=== PATIENT | female | born 1985 | race Caucasian/White ===

== ENCOUNTER 2017-02-06 15:53 | Inpatient (IN) | payer OTHER ==
[2017-02-06 17:41] VITALS: BMI 27.9
--- NOTE | 2017-02-06 19:14 | HP ---
COWS - Scale Resting Pulse: 0= SD 80 or Below Sweatin=Flushed/Facial Moisture Restless Observation: 3= Extraneous Movement Pupil Size: 2= Moderately Dilated Bone or Joint Aches: 2= Severe Diffuse Aches Runny Nose/ Eye Tearin= Runny Nose/Eyes GI Upset > 30mins: 3= Vomiting/Diarrhea Tremor Observation: 2= Slight Tremor Visible Yawning Observation: 2= >3x During Session Anxiety or Irritability: 2=Irritable/Anxious Goose Flesh Skin: 0=Smooth Skin COWS Score: 20 Admission ROS S - HPI Chief Complaint: NIC HERE TO BE DETOX FROM DILAUDID,REFER BY PMD Allergies/Adverse Reactions: Allergies Allergy/AdvReac Type Severity Reaction Status Date / Time No Known Allergies Allergy Verified 02/06/17 18:49 History of Present Illness: THIS 31 YEARS OLD FEMALE WITH OPITE DEPENDENCE,SEEKING DETOX,REFER FOR PMD,[facility] CLOSED 2 MOTHS AGO ENDOMETRIOSIS HEPATITIS C TREATED FACTOR 12 DEFICIENCY ANXIETY AND DEPRESSION,INSOMNIA NEVER BEEN IN DETOX BEFORE Exam Limitations: No Limitations - Ebola screening Have you traveled outside of the country in the last 21 days: No Have you had contact with anyone from an Ebola affected area: No Have you been sick,other than usual withdrawal symptoms: No Do you have a fever: No - Review of Systems Constitutional: Chills, Diaphoresis, Loss of Appetite, Malaise, Night Sweats, Changes in sleep, Weakness EENT: reports: Tearing, Nose Congestion Respiratory: reports: No Symptoms reported Cardiac: reports: Palpitations GI: reports: Diarrhea, Nausea, Vomiting, Abdominal cramping : reports: No Symptoms Reported Musculoskeletal: reports: Back Pain, Joint Pain, Muscle Pain Integumentary: reports: Dryness Neuro: reports: Headache, Tremors Endocrine: reports: No Symptoms Reported Hematology: reports: No Symptoms Reported Psychiatric: reports: No Sypmtoms Reported (INSOMNIA), Judgement Intact, Mood/ Affect Appropiate, Anxious, Depressed Patient History - Patient Medical History Hx Anemia: No Hx Asthma: No Hx Chronic Obstructive Pulmonary Disease (COPD): No Hx Cancer: No Hx Cardiac Disorders: No Hx Congestive Heart Failure: No Hx Hypertension: No Hx Hypercholesterolemia: No Hx Seizures: No Hx Dementia: No Hx Diabetes: No Hx Gastrointestinal Disorders: No Hx Liver Disease: Yes (HEPATITIS C TREATED) Hx Genitourinary Disorders: No Hx Sexually Transmitted Disorders: No Hx Renal Disease (ESRD): No Hx Thyroid Disease: No Hx Human Immunodeficiency Virus (HIV): No (LAST 2011 NEGATIVE) Hx Hepatitis C: Yes (TREATED) Hx Depression: Yes (ANXIETY) Hx Suicide Attempt: Yes (CUTTER AT AGE OF 18) Hx Bipolar Disorder: No Hx Schizophrenia: No Other Medical History: NO SUICIDAL,NO HOMICIDAL - Patient Surgical History Past Surgical History: Yes Hx Neurologic Surgery: No Hx Cataract Extraction: No Hx Cardiac Surgery: No Hx Lung Surgery: No Hx Breast Surgery: No Hx Breast Biopsy: No Hx Abdominal Surgery: Yes (LAP REMOVAL OF ENDOMETRIOSIS 2014,2015) Hx Appendectomy: No Hx Cholecystectomy: No Hx Genitourinary Surgery: No Hx Section: No Hx Orthopedic Surgery: No Other Surgical History: CYST OF RIGHT OVARY BENIGN AT AGE OF 22 Anesthesia Reaction: No - PPD History Previous Implant?: Yes Documented Results: Negative w/o proof Implanted On Prior [facility] Admission?: No PPD to be Administered?: Yes - Reproductive History Patient is a Female of Child Bearing Age (11 -55 yrs old): Yes Last Menstrual Period: 01/23/17 Patient : No - Smoking Cessation Smoking history: Never smoked Have you smoked in the past 12 months: No Hx Chewing Tobacco Use: No Initiated information on smoking cessation: No - Substance & Tx. History Hx Alcohol Use: No Hx Substance Use: Yes Substance Use Type: Opiates Hx Substance Use Treatment: No - Substances Abused Dilaudid Route: Oral Frequency: Daily Amount used: 20mg Age of first use: 25 Date of Last Use: 02/06/17 Family Disease History - Family Disease History Family History: Denies Admission Physical Exam S - Vital Signs Vital Signs: Vital Signs - 24 hr 02/06/17 17:36 Temperature 99.4 F Pulse Rate 76 Respiratory 18 Rate Blood Pressure 136/72 - Physical General Appearance: Yes: Moderate Distress, Tremorous, Irritable, Sweating, Anxious HEENTM: Yes: Hearing grossly Normal, Normal ENT Inspection, Normocephalic, JOSE , Pharynx Normal Respiratory: Yes: Lungs Clear, Normal Breath Sounds, No Respiratory Distress Neck: Yes: Within Normal Limits, Supple, Trachea in good position Breast: Yes: Breast Exam Deferred Cardiology: Yes: Within Normal Limits, Regular Rhythm, Regular Rate, S1, S2 Abdominal: Yes: Within Normal Limits, Normal Bowel Sounds, Non Tender, Soft Genitourinary: Yes: Within Normal Limits Back: Yes: Normal Inspection, Muscle Spasm Extremities: Yes: Normal Range of Motion, Tremors Neurological: Yes: ferruler II-XII NML intact, Fully Oriented, Alert, Motor Strength 5/5 Integumentary: Yes: Dry Lymphatic: Yes: Within Normal Limits - Diagnostic (1) Opioid dependence with withdrawal Current Visit: Yes Status: Acute (2) Endometriosis Current Visit: Yes Status: Acute (3) Hepatitis C Current Visit: Yes Status: Acute (4) Anxiety and depression Current Visit: Yes Status: Acute (5) Insomnia Current Visit: Yes Status: Acute (6) Endometriosis determined by laparoscopy Current Visit: Yes Status: Acute Cleared for Admission [facility] - Detox or Rehab [facility] Level of Care: Medically Managed Detox Regimen/Protocol: Methadone [facility] Breath Alcohol Content Breath Alcohol Content: 0 Urine Pregancy Test - Result Urine Test Results: Negative- NO Line Present Urine Drug Screen - Results Drug Screen Negative: No Urine Drug Screen Results: TCA-Tricyclic Antidepress, OXY-Oxycodone
[2017-02-06] MEDS ORDERED: guaiFENesin/D-METHORPHAN HB 10 ML UNIT-DOSE CUPS PO PRN (19:35)
[2017-02-06] MEDS ORDERED: MAGNESIUM HYDROX 2400MG/30ML ORAL SUSPENSION 30 ML CUP PO PRN (19:35)
[2017-02-06] MEDS ORDERED: MENTHOL/PHENOL 1 EACH UD MM PRN (19:35)
[2017-02-06] MEDS ORDERED: MAGNESIUM CITRATE 300 ML BOTTLE PO PRN (19:35)
[2017-02-06] MEDS ORDERED: METHADONE HCL 10 MG TABLET (FOR DETOX USE ONLY) PO ONE ×2 (19:35→23:00)
[2017-02-06] MEDS: diazePAM 5 MG TABLET PO PRN (22:25)
[2017-02-06] MEDS: CYCLOBENZAPRINE HCL 10 MG TABLET (FP) PO PRN (22:26)
[2017-02-06] MEDS: THIAMINE HCL 100 MG TABLET (FP) PO SCH (22:26)
[2017-02-06] MEDS: cloNIDine HCL 0.1 MG TABLET PO SCH (22:26)
[2017-02-06] MEDS: diphenhydrAMINE HCL 50 MG CAPSULE PO PRN (22:27)
[2017-02-07] MEDS: MAG HYDROX/AL HYDROX/SIMETH 30 ML UNIT-DOSE CUP PO PRN ×2 (00:30→22:34)
[2017-02-07] MEDS ORDERED: METHADONE HCL 10 MG TABLET (FOR DETOX USE ONLY) PO ONE (10:00)
[2017-02-07] MEDS: cloNIDine HCL 0.1 MG TABLET PO SCH ×2 (10:47→22:32)
[2017-02-07] MEDS: PRENATAL VITAMINS W/ FOLIC ACID TABLET (FP) PO SCH (10:47)
[2017-02-07] MEDS: CYCLOBENZAPRINE HCL 10 MG TABLET (FP) PO PRN ×2 (10:50→22:32)
--- NOTE | 2017-02-07 11:35 | PN ---
BHS COWS - Scale Resting Pulse: 1= [place] 81-100 Sweatin=Flushed/Facial Moisture Restless Observation: 1= Difficult to Sit Still Pupil Size: 0= Normal to Room Light Bone or Joint Aches: 2= Severe Diffuse Aches Runny Nose/ Eye Tearin= Runny Nose/Eyes GI Upset > 30mins: 2= Nausea/Diarrhea Tremor Observation of Outstretched Hands: 2= Slight Tremor Visible Yawning Observation: 2= >3x During Session Anxiety or Irritability: 2=Irritable/Anxious Goose Flesh Skin: 0=Smooth Skin COWS Score: 16 BHS Progress Note (SOAP) Subjective: agitation sweats irritable anxious i need my control Objective: 02/07/17 11:29 Vital Signs Temperature 98.8F 02/07/17 10:00 Pulse Rate 100 02/07/17 10:00 Respiratory Rate 16 02/07/17 10:00 Blood Pressure 127/72 02/07/17 010:00 O2 Sat by Pulse Oximetry (%) labs pending awake/alert ambulating no acute distress discuss with pt that she will need a family member bring in her control medication because we do not carry it. Also advised her that if the first option is not feasible she is to start a new pack once she is finished with detox. pt in agreement. Assessment: 02/07/17 11:35 withdrawal sx Plan: continue detox increase fluids
[2017-02-07] MEDS: GABAPENTIN 400 MG CAPSULE (FP) PO SCH ×2 (13:57→22:32)
--- NOTE | 2017-02-07 14:06 | EKG ---
Test Reason : Blood Pressure : / mmHG Vent. Rate : 089 BPM Atrial Rate : 089 BPM P-R Int : 166 ms QRS Dur : 084 ms QT Int : 348 ms P-R-T Axes : 072 070 061 degrees QTc Int : 423 ms NORMAL SINUS RHYTHM NORMAL ECG NO PREVIOUS ECGS AVAILABLE Confirmed by CARMELLA MENDOZA MD ([id number]) on 02/07/2017 2:05:57 PM Referred By: Jose Rafael Roche Confirmed By:CARMELLA MENDOZA MD
--- NOTE | 2017-02-07 14:45 | CONSULT ---
[facility] Psychiatric Consult - Data Date of interview: 02/07/17 Admission source: [facility] Identifying data: First admission to [facility] for this 31 y/o female seeking detox treatment on for opiate dependence.Patient is single without children,domiciled,unemployed and supported on [facility] benefits. Substance Abuse History: Discussed in detail with the patient in this interview.Ms Johansen confirms this [facility] report : Smoking Cessation. Smoking history: Never smoked. Have you smoked in the past 12 months: No. Hx Chewing Tobacco Use: No. Initiated information on smoking cessation: No. - Substance & Tx. History. Hx Alcohol Use: No. Hx Substance Use: Yes. Substance Use Type : Opiates. Hx Substance Use Treatment: No. - Substances Abused. Dilaudid. Route: Oral. Frequency: Daily. Amount used: 20mg. Age of first use: 25. Date of Last Use: 02/06/17 Medical History: Remarkable for GERD,factor XII deficiency,hepatitis C and a history of surgery for endometriosis (2014 + 2015).Remote history of surgical excision of cyst in right ovary (age 22).No known allergies. Psychiatric History: No reported history of psychiatric hospitalizations.However the patient was reportedly diagnosed with MDD and followed " for a while " by a private psychiatrist five years ago.Ms Johansen was prescribed sertraline and,as per self-report,the treatment was effective in symptom reduction.Patient indicates the occurrence of dysphoric symptoms " more often in recent times " and she wishes to resume zoloft.No history of suicide attempts.Moderate insomnia is endorsed by the patient (welcomes the addition of zolpidem to the regimen). Physical/Sexual Abuse/Trauma History: Patient denies. Additional Comment: Urine Drug Screen Results: TCA-Tricyclic Antidepressant, OXY -Oxycodone.Noted. Mental Status Exam - Mental Status Exam Alert and Oriented to: Time, Place, Person Cognitive Function: Good Patient Appearance: Well Groomed Mood: Anxious (mildly), Hopeful Affect: Appropriate, Normal Range Patient Behavior: Fatigued, Appropriate (well mannered), Cooperative Speech Pattern: Clear, Appropriate (good historian) Voice Loudness: Normal Thought Process: Intact, Goal Oriented Thought Disorder: Not Present Hallucinations: Denies Suicidal Ideation: Denies Homicidal Ideation: Denies Insight/Judgement: Fair Sleep: Poorly, Difficulty falling asleep Appetite: Good Muscle strength/Tone: Normal Gait/Station: Normal Psychiatric Findings - Problem List ([place] 1, 2,3) (1) Opioid dependence with withdrawal Current Visit: Yes Status: Acute (2) Mood disorder Current Visit: Yes Status: Chronic (3) Endometriosis Current Visit: Yes Status: Chronic (4) Hepatitis C Current Visit: Yes Status: Chronic (5) Insomnia Current Visit: Yes Status: Acute - Initial Treatment Plan Initial Treatment Plan: Psychoeducation well received by patient.Detoxification in progress.Zoloft 50 mg po daily + ambien 5 mg po hs prn.Side effects/benefits discussed with the patient.Made aware of potential for suicidal ideation/ decreased libido (sertraline) and parasomnias (ambien).Ms Johansen is in agreement with this plan of care.Observation.
[2017-02-07] MEDS: TRIMETHOBENZAMIDE HCL 300 MG CAPSULE PO PRN (15:33)
[2017-02-07] MEDS: diazePAM 5 MG TABLET PO PRN ×2 (15:39→22:32)
[2017-02-07] MEDS: ZOLPIDEM TARTRATE 5 MG TABLET PO PRN (22:32)
[2017-02-07] MEDS: THIAMINE HCL 100 MG TABLET (FP) PO SCH (22:33)
[2017-02-08] MEDS: GABAPENTIN 400 MG CAPSULE (FP) PO SCH ×3 (05:29→22:22)
[2017-02-08] MEDS: CYCLOBENZAPRINE HCL 10 MG TABLET (FP) PO PRN ×2 (05:32→22:21)
[2017-02-08] MEDS: diazePAM 5 MG TABLET PO PRN ×3 (05:32→22:22)
[2017-02-08] MEDS: TRIMETHOBENZAMIDE HCL 300 MG CAPSULE PO PRN (08:30)
[2017-02-08] MEDS ORDERED: METHADONE HCL 5 MG TABLET (FOR DETOX USE ONLY) PO ONE (10:00)
[2017-02-08] MEDS ORDERED: LEVONOR ETH ESTRAD PO ONE (10:00)
[2017-02-08] MEDS ORDERED: LEVONORGESTREL ETHIN ESTRADIOL PO SCH (10:00)
[2017-02-08 10:04] LABS: ALBUMIN 3.6 g/dl (3.4-5.0); ANION GAP 4 (8-16); CO2 29 mmol/L (21-32); GLUCOSE,RANDOM 83 mg/dL (74-106)
[2017-02-08 10:09] LABS: ALK PHOS 68 U/L (45-117); BILIRUBIN,TOTAL 0.4 mg/dL (0.2-1.0); CREATININE 0.8 mg/dL (0.55-1.02); SGOT/AST 12 U/L (15-37); SGPT/ALT 15 U/L (12-78); TOT PROT 6.9 g/dl (6.4-8.2)
[2017-02-08 10:13] LABS: MCH 28.7 pg (25.7-33.7); MCHC 34.2 g/dl (32.0-36.0); MEAN CELL VOLUME 83.9 fl (80-96); MEAN PLT VOLUME 8.8 fl (7.5-11.1); PLATELET COUNT 262 K/MM3 (134-434); RDW 13.4 % (11.6-15.6)
[2017-02-08] MEDS: PRENATAL VITAMINS W/ FOLIC ACID TABLET (FP) PO SCH (10:47)
[2017-02-08] MEDS: cloNIDine HCL 0.1 MG TABLET PO SCH ×2 (10:47→22:21)
[2017-02-08] MEDS: SERTRALINE HCL 50 MG TABLET (FP) PO SCH (10:48)
--- NOTE | 2017-02-08 11:29 | PN ---
BHS COWS - Scale Resting Pulse: 2= [place] 101-120 Sweatin=Flushed/Facial Moisture Restless Observation: 1= Difficult to Sit Still Pupil Size: 0= Normal to Room Light Bone or Joint Aches: 2= Severe Diffuse Aches Runny Nose/ Eye Tearin= Nasal Congestion GI Upset > 30mins: 0= None Tremor Observation of Outstretched Hands: 2= Slight Tremor Visible Yawning Observation: 2= >3x During Session Anxiety or Irritability: 2=Irritable/Anxious Goose Flesh Skin: 0=Smooth Skin COWS Score: 14 BHS Progress Note (SOAP) Subjective: shakes sweats interrupted sleep agitation Objective: 02/08/17 11:28 Vital Signs Temperature 98.1 F 02/08/17 10:55 Pulse Rate 105 H 02/08/17 10:55 Respiratory Rate 20 02/08/17 10:55 Blood Pressure 134/80 02/08/17 10:55 O2 Sat by Pulse Oximetry (%) Laboratory Tests 02/08/17 02/08/17 06:30 06:30 WBC 9.0 RBC 4.17 Hgb 12.0 Hct 35.0 MCV 83.9 MCH 28.7 MCHC 34.2 RDW 13.4 Plt Count 262 MPV 8.8 Sodium 137 Potassium 4.8 Chloride 104 Carbon Dioxide 29 Anion Gap 4 L BUN 14 Creatinine 0.8 Creat Clearance w eGFR > 60 Random Glucose 83 Calcium 9.0 Total Bilirubin 0.4 AST 12 L ALT 15 Alkaline Phosphatase 68 Total Protein 6.9 Albumin 3.6 u/a pending awake/alert ambulating no acute distress Assessment: 02/08/17 11:29 withdrawal sx Plan: continue detox increase fluids u/a pending
[2017-02-08] MEDS ORDERED: TRIMETHOBENZAMIDE HCL 200MG/2ML INJ IM PRN (14:30)
[2017-02-08] MEDS ORDERED: TRIMETHOBENZAMIDE HCL 200MG/2ML INJ IM ONE (15:07)
[2017-02-08 22:10] LABS: URINE APPEARANCE SLCLOUDY; URINE BILIRUBIN NEGATIVE (NEGATIVE); URINE BLOOD NEGATIVE (NEGATIVE); URINE COLOR YELLOW; URINE GLUCOSE (UA) NEGATIVE (NEGATIVE); URINE KETONE NEGATIVE (NEGATIVE); URINE NITRITE NEGATIVE (NEGATIVE); URINE PROTEIN NEGATIVE (NEGATIVE); URINE UROBILINOGEN NEGATIVE mg/dL (0.2-1.0)
[2017-02-08] MEDS: ZOLPIDEM TARTRATE 5 MG TABLET PO PRN (22:21)
[2017-02-08] MEDS: THIAMINE HCL 100 MG TABLET (FP) PO SCH (22:22)
[2017-02-08 22:32] LABS: URINE LEUK ESTERASE 3+ (NEGATIVE)
[2017-02-08 22:34] LABS: URINE BACTERIA RARE /hpf (NONE SEEN); URINE HYALINE CAST 1 /lpf; URINE MUCUS RARE; URINE RBC 4 /hpf (0-3); URINE WBC 6 /hpf (3-5)
[2017-02-09] MEDS: GABAPENTIN 400 MG CAPSULE (FP) PO SCH ×3 (05:23→22:39)
[2017-02-09] MEDS ORDERED: METHADONE HCL 5 MG TABLET (FOR DETOX USE ONLY) PO ONE (10:00)
[2017-02-09] MEDS: ACETAMINOPHEN 325 MG TABLET (FP) PO PRN (10:36)
[2017-02-09] MEDS: cloNIDine HCL 0.1 MG TABLET PO SCH ×2 (10:37→22:39)
[2017-02-09] MEDS: SERTRALINE HCL 50 MG TABLET (FP) PO SCH (10:37)
[2017-02-09] MEDS: PRENATAL VITAMINS W/ FOLIC ACID TABLET (FP) PO SCH (10:37)
[2017-02-09] MEDS: LEVONORGESTREL ETHIN ESTRADIOL PO SCH (10:38)
[2017-02-09] MEDS: diazePAM 5 MG TABLET PO PRN ×2 (10:38→14:26)
--- NOTE | 2017-02-09 12:04 | PN ---
BHS Progress Note (SOAP) Subjective: sweats agitation Objective: 02/09/17 12:04 Vital Signs Temperature 97.9 F 02/09/17 09:40 Pulse Rate 110 H 02/09/17 09:40 Respiratory Rate 16 02/09/17 09:40 Blood Pressure 141/78 02/09/17 09:40 O2 Sat by Pulse Oximetry (%) awake/alert ambulating no acute distress Assessment: 02/09/17 12:04 withdrawal sx Plan: continue detox increase fluids
[2017-02-09] MEDS ORDERED: HYDROCORTISONE 1% TOPICAL CREAM 30 GM TUBE TP PRN (14:41)
[2017-02-09] MEDS: ZOLPIDEM TARTRATE 5 MG TABLET PO PRN (22:38)
[2017-02-09] MEDS: THIAMINE HCL 100 MG TABLET (FP) PO SCH (22:39)
[2017-02-09] MEDS: CYCLOBENZAPRINE HCL 10 MG TABLET (FP) PO PRN (22:39)
[2017-02-10] MEDS: MAG HYDROX/AL HYDROX/SIMETH 30 ML UNIT-DOSE CUP PO PRN ×2 (02:09→15:36)
[2017-02-10] MEDS: GABAPENTIN 400 MG CAPSULE (FP) PO SCH ×3 (06:12→22:47)
[2017-02-10] MEDS ORDERED: METHADONE HCL 10 MG TABLET (FOR DETOX USE ONLY) PO ONE (10:00)
[2017-02-10] MEDS: SERTRALINE HCL 50 MG TABLET (FP) PO SCH (11:08)
[2017-02-10] MEDS: cloNIDine HCL 0.1 MG TABLET PO SCH ×2 (11:08→22:47)
[2017-02-10] MEDS: PRENATAL VITAMINS W/ FOLIC ACID TABLET (FP) PO SCH (11:08)
[2017-02-10] MEDS: LEVONORGESTREL ETHIN ESTRADIOL PO SCH (11:09)
[2017-02-10] MEDS: CYCLOBENZAPRINE HCL 10 MG TABLET (FP) PO PRN ×2 (11:10→22:47)
--- NOTE | 2017-02-10 12:52 | PN ---
BHS Progress Note (SOAP) Subjective: feeling better very little sweats Objective: 02/10/17 12:51 Vital Signs Temperature 98.2 F 02/10/17 10:00 Pulse Rate 100 H 02/10/17 10:00 Respiratory Rate 20 02/10/17 10:00 Blood Pressure 137/80 02/10/17 10:00 O2 Sat by Pulse Oximetry (%) awake/alert ambulating no acute distress Assessment: 02/10/17 12:52 mild withdrawal sx Plan: continue detox increase fluids d/c in am
[2017-02-10 14:02] LABS: URINE APPEARANCE SLCLOUDY; URINE BILIRUBIN NEGATIVE (NEGATIVE); URINE BLOOD NEGATIVE (NEGATIVE); URINE COLOR LTYELLOW; URINE GLUCOSE (UA) NEGATIVE (NEGATIVE); URINE KETONE NEGATIVE (NEGATIVE); URINE NITRITE NEGATIVE (NEGATIVE); URINE PROTEIN NEGATIVE (NEGATIVE); URINE UROBILINOGEN NEGATIVE mg/dL (0.2-1.0)
[2017-02-10 14:09] LABS: URINE LEUK ESTERASE 3+ (NEGATIVE)
[2017-02-10 14:35] LABS: URINE BACTERIA RARE /hpf (NONE SEEN); URINE MUCUS RARE; URINE RBC 2 /hpf (0-3); URINE WBC 9 /hpf (3-5)
[2017-02-10] MEDS: TRIMETHOBENZAMIDE HCL 300 MG CAPSULE PO PRN (16:44)
[2017-02-10] MEDS: THIAMINE HCL 100 MG TABLET (FP) PO SCH (22:47)
[2017-02-10] MEDS: ZOLPIDEM TARTRATE 5 MG TABLET PO PRN (22:47)
[2017-02-11] MEDS: GABAPENTIN 400 MG CAPSULE (FP) PO SCH ×3 (05:53→21:27)
[2017-02-11] MEDS ORDERED: METHADONE HCL 5 MG TABLET (FOR DETOX USE ONLY) PO ONE (06:00)
--- NOTE | 2017-02-11 09:35 | DS ---
[facility] Detox Discharge Summary Admission Date: 02/06/17 Discharge Date: 02/11/17 - History Present History: Opioid Dependence Additional Comments: FOLLOW UP WITH [facility] Pertinent Past History: HEPATITIS C ENDOMETRIOSIS ANXIETY AND DEPRESSION - Physical Exam Results Vital Signs: Vital Signs Temperature 97.7 F 02/11/17 06:27 Pulse Rate 86 02/11/17 06:27 Respiratory Rate 18 02/11/17 06:27 Blood Pressure 137/83 02/11/17 06:27 O2 Sat by Pulse Oximetry (%) Pertinent Admission Physical Exam Findings: WITHDRAWAL SYMPTOM - Treatment Hospital Course: Detox Protocol Followed, Detoxed Safely, Responded well, Discharged Condition Good, Rehab Referral Accepted Patient has Accepted a Rehab Referral to: [facility] - Medication Discharge Medications: Ambulatory Orders Gabapentin [Neurontin -] 400 mg PO TID 02/06/17 Levonorgestrel-Ethin Estradiol [Levonor-Eth Estrad 0.15-0.03] 1 each PO DAILY Sertraline HCl [Zoloft -] 50 mg PO DAILY #30 tablet 02/08/17 - Diagnosis (1) Opioid dependence with withdrawal Current Visit: Yes Status: Acute (2) Endometriosis Current Visit: Yes Status: Chronic (3) Hepatitis C Current Visit: Yes Status: Chronic (4) Anxiety and depression Current Visit: Yes Status: Acute (5) Insomnia Current Visit: Yes Status: Acute (6) Endometriosis determined by laparoscopy Current Visit: Yes Status: Acute - AMA Did Patient Leave Against Medical Advice: No
[2017-02-11] MEDS: SERTRALINE HCL 50 MG TABLET (FP) PO SCH (10:54)
[2017-02-11] MEDS: LEVONORGESTREL ETHIN ESTRADIOL PO SCH (10:55)
[2017-02-11] MEDS: cloNIDine HCL 0.1 MG TABLET PO SCH ×2 (10:55→21:27)
[2017-02-11] MEDS: PRENATAL VITAMINS W/ FOLIC ACID TABLET (FP) PO SCH (10:56)
[2017-02-11] MEDS: CYCLOBENZAPRINE HCL 10 MG TABLET (FP) PO PRN (10:57)
[2017-02-11] MEDS: P-EPHED 60MG/TRIPROLIDI 2.5MG TABLET PO PRN (17:43)
--- NOTE | 2017-02-11 19:42 | PN ---
[facility] Progress Note Note: Psychiatry Attending's shop and alteration tailor note : Met with patient to explain rules and medications. Complains on anxiety.Inquisitive about prn medications available. Patient known to this creative services writer from [address] [place] [address].See my note of 02/07/17. Intervention : Reassurance. Vistaril 25 mg po q 4h prn. Ms Johansen agrees with careplan.
[2017-02-11] MEDS: hydrOXYzine PAMOATE 25 MG CAPSULE (FP) PO PRN (20:06)
[2017-02-11] MEDS: THIAMINE HCL 100 MG TABLET (FP) PO SCH (21:27)
[2017-02-12] MEDS: CYCLOBENZAPRINE HCL 10 MG TABLET (FP) PO PRN ×2 (04:10→21:27)
[2017-02-12] MEDS: hydrOXYzine PAMOATE 25 MG CAPSULE (FP) PO PRN ×4 (04:10→21:27)
[2017-02-12] MEDS: GABAPENTIN 400 MG CAPSULE (FP) PO SCH ×3 (06:49→21:26)
[2017-02-12] MEDS: LEVONORGESTREL ETHIN ESTRADIOL PO SCH (09:33)
[2017-02-12] MEDS: SERTRALINE HCL 50 MG TABLET (FP) PO SCH (09:34)
[2017-02-12] MEDS: cloNIDine HCL 0.1 MG TABLET PO SCH ×2 (09:34→21:26)
[2017-02-12] MEDS: PRENATAL VITAMINS W/ FOLIC ACID TABLET (FP) PO SCH (09:34)
[2017-02-12] MEDS: THIAMINE HCL 100 MG TABLET (FP) PO SCH (21:26)
[2017-02-13] MEDS: MAG HYDROX/AL HYDROX/SIMETH 30 ML UNIT-DOSE CUP PO PRN (04:24)
[2017-02-13] MEDS: CYCLOBENZAPRINE HCL 10 MG TABLET (FP) PO PRN ×2 (06:34→14:53)
[2017-02-13] MEDS: GABAPENTIN 400 MG CAPSULE (FP) PO SCH ×3 (06:34→21:20)
[2017-02-13] MEDS: cloNIDine HCL 0.1 MG TABLET PO SCH ×2 (09:47→21:20)
[2017-02-13] MEDS: PRENATAL VITAMINS W/ FOLIC ACID TABLET (FP) PO SCH (09:47)
[2017-02-13] MEDS: LEVONORGESTREL ETHIN ESTRADIOL PO SCH (09:47)
[2017-02-13] MEDS: SERTRALINE HCL 50 MG TABLET (FP) PO SCH (09:48)
[2017-02-13] MEDS: hydrOXYzine PAMOATE 25 MG CAPSULE (FP) PO PRN ×3 (09:49→21:21)
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
[2017-02-13] MEDS: LIDOCAINE VISCOUS 2% ORAL/TOP 20 ML UNIT-DOSE CUP MM PRN (17:55)
[2017-02-13] MEDS: THIAMINE HCL 100 MG TABLET (FP) PO SCH (21:20)
[2017-02-14] MEDS: GABAPENTIN 400 MG CAPSULE (FP) PO SCH ×3 (06:09→21:14)
[2017-02-14] MEDS: CYCLOBENZAPRINE HCL 10 MG TABLET (FP) PO PRN ×2 (06:10→18:18)
[2017-02-14] MEDS: hydrOXYzine PAMOATE 25 MG CAPSULE (FP) PO PRN ×3 (06:10→17:08)
[2017-02-14] MEDS: LIDOCAINE VISCOUS 2% ORAL/TOP 20 ML UNIT-DOSE CUP MM PRN (06:32)
[2017-02-14] MEDS: cloNIDine HCL 0.1 MG TABLET PO SCH ×2 (09:31→21:13)
[2017-02-14] MEDS: LEVONORGESTREL ETHIN ESTRADIOL PO SCH (09:31)
[2017-02-14] MEDS: PRENATAL VITAMINS W/ FOLIC ACID TABLET (FP) PO SCH (09:32)
[2017-02-14] MEDS: ACETAMINOPHEN 325 MG TABLET (FP) PO PRN (09:32)
[2017-02-14] MEDS: SERTRALINE HCL 50 MG TABLET (FP) PO SCH (09:49)
[2017-02-14] MEDS: MAG HYDROX/AL HYDROX/SIMETH 30 ML UNIT-DOSE CUP PO PRN (15:38)
[2017-02-14] MEDS: THIAMINE HCL 100 MG TABLET (FP) PO SCH (21:14)
[2017-02-14] MEDS: diphenhydrAMINE HCL 50 MG CAPSULE PO PRN (21:14)
[2017-02-15] MEDS: hydrOXYzine PAMOATE 25 MG CAPSULE (FP) PO PRN ×5 (00:46→21:26)
[2017-02-15] MEDS: GABAPENTIN 400 MG CAPSULE (FP) PO SCH ×3 (06:19→21:25)
[2017-02-15] MEDS: CYCLOBENZAPRINE HCL 10 MG TABLET (FP) PO PRN (06:20)
[2017-02-15] MEDS: LIDOCAINE VISCOUS 2% ORAL/TOP 20 ML UNIT-DOSE CUP MM PRN (07:47)
[2017-02-15] MEDS: ACETAMINOPHEN 325 MG TABLET (FP) PO PRN ×2 (08:38→15:49)
[2017-02-15] MEDS: cloNIDine HCL 0.1 MG TABLET PO SCH (10:11)
[2017-02-15] MEDS: LEVONORGESTREL ETHIN ESTRADIOL PO SCH (10:11)
[2017-02-15] MEDS: SERTRALINE HCL 50 MG TABLET (FP) PO SCH (10:12)
[2017-02-15] MEDS: PRENATAL VITAMINS W/ FOLIC ACID TABLET (FP) PO SCH (10:12)
--- NOTE | 2017-02-15 15:01 | PN ---
BHS Progress Note Note: Edema of the legs Vital Signs - 8 hr 02/15/17 02/15/17 07:13 08:46 Temperature 98.0 F Pulse Rate 96 H 100 H Respiratory 18 Rate Blood Pressure 120/84 138/94 P : Lasix & Aldactone bid
[2017-02-15] MEDS ORDERED: FUROSEMIDE 20 MG TABLET (FP) PO ONE (15:39)
[2017-02-15] MEDS: SPIRONOLACTONE 25 MG TABLET (FP) PO SCH (17:11)
[2017-02-15] MEDS: traZODone HCL 100 MG TABLET (FP) PO SCH (21:25)
[2017-02-15] MEDS: THIAMINE HCL 100 MG TABLET (FP) PO SCH (21:25)
[2017-02-16] MEDS: CYCLOBENZAPRINE HCL 10 MG TABLET (FP) PO PRN (03:13)
[2017-02-16] MEDS: hydrOXYzine PAMOATE 25 MG CAPSULE (FP) PO PRN ×3 (03:13→15:08)
[2017-02-16] MEDS: GABAPENTIN 400 MG CAPSULE (FP) PO SCH ×3 (06:25→21:22)
[2017-02-16] MEDS: FUROSEMIDE 20 MG TABLET (FP) PO SCH ×2 (06:26→13:04)
[2017-02-16] MEDS: PRENATAL VITAMINS W/ FOLIC ACID TABLET (FP) PO SCH (10:08)
[2017-02-16] MEDS: LEVONORGESTREL ETHIN ESTRADIOL PO SCH (10:08)
[2017-02-16] MEDS: SERTRALINE HCL 50 MG TABLET (FP) PO SCH (10:09)
[2017-02-16] MEDS: SPIRONOLACTONE 25 MG TABLET (FP) PO SCH ×2 (10:09→15:50)
[2017-02-16] MEDS: P-EPHED 60MG/TRIPROLIDI 2.5MG TABLET PO PRN ×2 (10:10→18:50)
[2017-02-16] MEDS: THIAMINE HCL 100 MG TABLET (FP) PO SCH (21:22)
[2017-02-16] MEDS: traZODone HCL 100 MG TABLET (FP) PO SCH (21:22)
[2017-02-17] MEDS: CYCLOBENZAPRINE HCL 10 MG TABLET (FP) PO PRN ×2 (06:26→21:34)
[2017-02-17] MEDS: GABAPENTIN 400 MG CAPSULE (FP) PO SCH ×3 (06:26→21:36)
[2017-02-17] MEDS: FUROSEMIDE 20 MG TABLET (FP) PO SCH ×2 (06:26→13:00)
[2017-02-17] MEDS: hydrOXYzine PAMOATE 25 MG CAPSULE (FP) PO PRN ×2 (06:26→12:59)
[2017-02-17] MEDS: SPIRONOLACTONE 25 MG TABLET (FP) PO SCH ×2 (09:57→17:12)
[2017-02-17] MEDS: PRENATAL VITAMINS W/ FOLIC ACID TABLET (FP) PO SCH (09:57)
[2017-02-17] MEDS: SERTRALINE HCL 50 MG TABLET (FP) PO SCH (09:57)
[2017-02-17] MEDS: LEVONORGESTREL ETHIN ESTRADIOL PO SCH (09:58)
[2017-02-17] MEDS: IBUPROFEN 400 MG TABLET (FP) PO PRN (12:59)
--- NOTE | 2017-02-17 14:28 | PN ---
[facility] Progress Note Note: C/O anxiety & tachycardia, she's on zoloft Vital Signs - 24 hr 02/16/17 02/16/17 02/17/17 15:48 21:05 00:30 Temperature Pulse Rate 118 H 114 H Respiratory 18 17 Rate Blood Pressure 135/85 138/87 02/17/17 02/17/17 02/17/17 03:30 07:06 10:53 Temperature 98.2 F 98.2 F Pulse Rate 120 H 130 H Respiratory 18 18 20 Rate Blood Pressure 136/84 140/84 P : metoprolol 25mg bid to decrease HR
--- NOTE | 2017-02-17 14:35 | PN ---
Psychiatric Progress Note Vital Signs: Vital Signs Period Temp Pulse Resp BP Sys/Smart Pulse Ox Last 24 Hr 98.2 F-98.2 F 114-130 17-20 135-140/84-87 Date of Session: 02/17/17 Chief Complaint:: Rober still very depressed and nervious. HPI: Patient addressed Opioid dependence comorbid with Substance induced mood disorder. ROS: Significant for severe Endometriosis with infertility. Current Medications: Active Medications Generic Name Dose Route Start Last Admin Trade Name Freq PRN Reason Stop Dose Admin Acetaminophen 650 mg 02/06/17 19:35 02/15/17 15:49 Tylenol - PO 650 mg Q4H PRN Administration FEVER OR PAIN Al Hydroxide/Mg Hydroxide 30 ml 02/06/17 19:35 02/14/17 15:38 Mylanta Oral Suspension - PO 30 ml Q6H PRN Administration DYSPEPSIA Cyclobenzaprine HCl 10 mg 02/06/17 19:38 02/17/17 06:26 Flexeril - PO 10 mg TID PRN Administration MUSCLE SPASMS Diphenhydramine HCl 50 mg 02/06/17 19:35 02/14/17 21:14 Benadryl - PO 50 mg HSMR1 PRN Administration INSOMNIA Eucalyptus/Menthol/Phenol/Sorbitol 1 each 02/06/17 19:35 02/12/17 09:34 Cepastat Lozenge - MM 1 each Q4H PRN Administration SORE THROAT Furosemide 20 mg 02/16/17 06:00 02/17/17 13:00 Lasix - PO 20 mg BID@0600,1400 EVARISTO Administration Gabapentin 400 mg 02/07/17 14:00 02/17/17 12:59 Neurontin - PO 400 mg TID EVARISTO Administration Guaifenesin 10 ml 02/06/17 19:35 Robitussin Dm - PO Q6H PRN COUGH Hydrocortisone 1 applic 02/09/17 14:41 02/09/17 22:39 Hytone 1% Cream - TP 1 applic BID PRN Administration FOR ITCHING Hydroxyzine Pamoate 25 mg 02/06/17 19:35 02/17/17 12:59 Vistaril - PO 25 mg Q4H PRN Administration AGITATION Ibuprofen 400 mg 02/06/17 19:35 02/17/17 12:59 Motrin - PO 400 mg Q6H PRN Administration SEVERE PAIN Lidocaine HCl 20 ml 02/13/17 15:16 02/15/17 07:47 Xylocaine 2% Viscous Oral - MM 20 ml Q4HPO PRN Administration ORAL PAIN/MOUTH SORES Loperamide HCl 4 mg 02/06/17 19:35 Imodium - PO Q6H PRN DIARRHEA Magnesium Citrate 300 ml 02/06/17 19:35 Citroma - PO Q48H PRN CONSTIPATION Magnesium Hydroxide 30 ml 02/06/17 19:35 Milk Of Magnesia - PO DAILY PRN CONSTIPATION Metoprolol Tartrate 25 mg 02/17/17 14:24 Lopressor - PO 02/17/17 14:25 ONCE ONE Metoprolol Tartrate 25 mg 02/17/17 22:00 Lopressor - PO BID EVARISTO Non-Formulary Medication 1 each 02/09/17 10:00 02/17/17 09:58 Levonorgestrel-Ethin Estradiol [Levonor-Eth Estrad 0.15-0.03] PO 1 each DAILY EVARISTO Administration Multivit/Folic Acid/Iron 1 tab 02/07/17 10:00 02/17/17 09:57 Vitamins (Sjr) - PO 1 tab DAILY EVARISTO Administration Pseudoephedrine/Triprolidine 1 combo 02/06/17 19:35 02/16/17 18:50 Actifed - PO 1 combo TID PRN Administration NASAL CONGESTION Sertraline HCl 50 mg 02/08/17 10:00 02/17/17 09:57 Zoloft - PO 50 mg DAILY EVARISTO Administration Spironolactone 25 mg 02/15/17 16:00 02/17/17 09:57 Aldactone - PO 25 mg BID@1000,1600 EVARISTO Administration Thiamine HCl 100 mg 02/06/17 22:00 02/16/17 21:22 Vitamin B1 - PO 100 mg HS EVARISTO Administration Trazodone HCl 100 mg 02/15/17 22:00 02/16/17 21:22 Desyrel - PO 100 mg HS EVARISTO Administration Trimethobenzamide HCl 300 mg 02/07/17 14:27 02/10/17 16:44 Tigan - PO 300 mg QID PRN Administration NAUSEA AND/OR VOMITING Trimethobenzamide HCl 200 mg 02/08/17 14:30 Tigan Injection - IM Q8H PRN NAUSEA Current Side Effect: No Lab tests ordered: No Lab tests reviewed: Yes Provider note:: Chart was revuewed,patient was evaluated and medications has been discussed with the patient.She addressed continues depressed mood,anxiety, feeling weak,fatique,low energy.properties of Zoloft has been discussed with the patient including side effects,benefits and dose adjustment.Zoloft 50 mg po daily will be adjusted to 100 mg po daily. Supportive therapy has been provided . Total face to face time:: 25 Mental Status Exam - Mental Status Exam Alert and Oriented to: Time, Place, Person Cognitive Function: Grossly Intact Patient Appearance: Well Groomed Mood: Sad, Anxious Affect: Mood Congruent, Labile Patient Behavior: Cooperative Speech Pattern: Clear Voice Loudness: Normal Thought Process: Goal Oriented Thought Disorder: Not Present Hallucinations: Denies Suicidal Ideation: Denies Homicidal Ideation: Denies Insight/Judgement: Fair Sleep: Fair Appetite: Fair Muscle strength/Tone: Normal Gait/Station: Normal Psychiatric Treatment Plan - Problem List (1) Endometriosis determined by laparoscopy Current Visit: Yes (2) Endometriosis Current Visit: Yes (3) Hepatitis C Current Visit: Yes (4) Opioid dependence Current Visit: Yes (5) Substance induced mood disorder Current Visit: Yes
[2017-02-17] MEDS ORDERED: METOPROLOL TARTRATE 25 MG TABLET (FP) PO ONE (14:45)
[2017-02-17] MEDS: traZODone HCL 100 MG TABLET (FP) PO SCH (21:33)
[2017-02-17] MEDS: hydrOXYzine PAMOATE 50 MG CAPSULE (FP) PO PRN (21:34)
[2017-02-17] MEDS: THIAMINE HCL 100 MG TABLET (FP) PO SCH (21:35)
[2017-02-17] MEDS: METOPROLOL TARTRATE 25 MG TABLET (FP) PO SCH (21:36)
[2017-02-18] MEDS: FUROSEMIDE 20 MG TABLET (FP) PO SCH ×2 (06:25→13:09)
[2017-02-18] MEDS: GABAPENTIN 400 MG CAPSULE (FP) PO SCH ×3 (06:25→21:20)
[2017-02-18] MEDS: hydrOXYzine PAMOATE 50 MG CAPSULE (FP) PO PRN ×2 (06:27→11:50)
[2017-02-18] MEDS: IBUPROFEN 400 MG TABLET (FP) PO PRN ×3 (06:27→21:21)
[2017-02-18] MEDS: SPIRONOLACTONE 25 MG TABLET (FP) PO SCH ×2 (10:00→15:26)
[2017-02-18] MEDS: PRENATAL VITAMINS W/ FOLIC ACID TABLET (FP) PO SCH (10:00)
[2017-02-18] MEDS: SERTRALINE HCL 50 MG TABLET (FP) PO SCH (10:00)
[2017-02-18] MEDS: METOPROLOL TARTRATE 25 MG TABLET (FP) PO SCH ×2 (10:01→21:21)
[2017-02-18] MEDS: LEVONORGESTREL ETHIN ESTRADIOL PO SCH (10:01)
[2017-02-18] MEDS: LOPERAMIDE HCL 2 MG CAPSULE PO PRN (17:39)
[2017-02-18] MEDS: diphenhydrAMINE HCL 50 MG CAPSULE PO PRN (21:21)
[2017-02-18] MEDS: traZODone HCL 100 MG TABLET (FP) PO SCH (21:21)
[2017-02-18] MEDS: THIAMINE HCL 100 MG TABLET (FP) PO SCH (21:21)
[2017-02-19] MEDS: hydrOXYzine PAMOATE 50 MG CAPSULE (FP) PO PRN ×4 (02:29→22:31)
[2017-02-19] MEDS: FUROSEMIDE 20 MG TABLET (FP) PO SCH ×2 (06:28→13:01)
[2017-02-19] MEDS: GABAPENTIN 400 MG CAPSULE (FP) PO SCH ×3 (06:28→21:24)
[2017-02-19] MEDS: CYCLOBENZAPRINE HCL 10 MG TABLET (FP) PO PRN (06:29)
[2017-02-19] MEDS: LOPERAMIDE HCL 2 MG CAPSULE PO PRN (08:35)
[2017-02-19] MEDS: PRENATAL VITAMINS W/ FOLIC ACID TABLET (FP) PO SCH (09:00)
[2017-02-19] MEDS: METOPROLOL TARTRATE 25 MG TABLET (FP) PO SCH ×2 (09:00→21:24)
[2017-02-19] MEDS: SERTRALINE HCL 50 MG TABLET (FP) PO SCH (09:00)
[2017-02-19] MEDS: LEVONORGESTREL ETHIN ESTRADIOL PO SCH (09:00)
[2017-02-19] MEDS: SPIRONOLACTONE 25 MG TABLET (FP) PO SCH ×2 (09:01→15:51)
[2017-02-19] MEDS: TRIMETHOBENZAMIDE HCL 300 MG CAPSULE PO PRN (09:25)
[2017-02-19] MEDS: P-EPHED 60MG/TRIPROLIDI 2.5MG TABLET PO PRN (13:10)
[2017-02-19] MEDS: IBUPROFEN 400 MG TABLET (FP) PO PRN (14:13)
--- NOTE | 2017-02-19 16:16 | PN ---
S Progress Note Note: Pt. c/o abdominal pain caused by endomytriosis, Motrin 800mg did not help. Vital Signs - 8 hr 02/19/17 02/19/17 02/19/17 09:00 13:00 15:36 Temperature 98.5 F Pulse Rate 109 H 97 H 101 H Respiratory 16 18 Rate Blood Pressure 114/79 119/84 102/70 Laboratory Last Values WBC 9.0 K/mm3 (4.0-10.0) 02/08/17 06:30 RBC 4.17 M/mm3 (3.60-5.2) 02/08/17 06:30 Hgb 12.0 GM/dL (10.7-15.3) 02/08/17 06:30 Hct 35.0 % (32.4-45.2) 02/08/17 06:30 MCV 83.9 fl (80-96) 02/08/17 06:30 MCH 28.7 pg (25.7-33.7) 02/08/17 06:30 MCHC 34.2 g/dl (32.0-36.0) 02/08/17 06:30 RDW 13.4 % (11.6-15.6) 02/08/17 06:30 Plt Count 262 K/MM3 (134-434) 02/08/17 06:30 MPV 8.8 fl (7.5-11.1) 02/08/17 06:30 Sodium 137 mmol/L (136-145) 02/08/17 06:30 Potassium 4.8 mmol/L (3.5-5.1) 02/08/17 06:30 Chloride 104 mmol/L (98-107) 02/08/17 06:30 Carbon Dioxide 29 mmol/L (21-32) 02/08/17 06:30 Anion Gap 4 (8-16) L 02/08/17 06:30 BUN 14 mg/dL (7-18) 02/08/17 06:30 Creatinine 0.8 mg/dL (0.55-1.02) 02/08/17 06:30 Creat Clearance w eGFR > 60 (>60) 02/08/17 06:30 Random Glucose 83 mg/dL (74-106) 02/08/17 06:30 Calcium 9.0 mg/dL (8.5-10.1) 02/08/17 06:30 Total Bilirubin 0.4 mg/dL (0.2-1.0) 02/08/17 06:30 AST 12 U/L (15-37) L 02/08/17 06:30 ALT 15 U/L (12-78) 02/08/17 06:30 Alkaline Phosphatase 68 U/L (45-117) 02/08/17 06:30 Total Protein 6.9 g/dl (6.4-8.2) 02/08/17 06:30 Albumin 3.6 g/dl (3.4-5.0) 02/08/17 06:30 Urine Color Ltyellow 02/09/17 10:00 Urine Appearance Slcloudy 02/09/17 10:00 Urine pH 7.0 (5.0-8.0) 02/09/17 10:00 Ur Specific [place] 1.015 (1.005-1.025) 02/09/17 10:00 Urine Protein Negative (NEGATIVE) 02/09/17 10:00 Urine Glucose (UA) Negative (NEGATIVE) 02/09/17 10:00 Urine Ketones Negative (NEGATIVE) 02/09/17 10:00 Urine Blood Negative (NEGATIVE) 02/09/17 10:00 Urine Nitrite Negative (NEGATIVE) 02/09/17 10:00 Urine Bilirubin Negative (NEGATIVE) 02/09/17 10:00 Urine Urobilinogen Negative mg/dL (0.2-1.0) 02/09/17 10:00 Ur Leukocyte Esterase 3+ (NEGATIVE) H 02/09/17 10:00 Urine RBC 2 /hpf (0-3) 02/09/17 10:00 Urine WBC 9 /hpf (3-5) 02/09/17 10:00 Ur Epithelial Cells Few /hpf (FEW) 02/09/17 10:00 Urine Bacteria Rare /hpf (NONE SEEN) 02/09/17 10:00 Hyaline Casts 1 /lpf 02/08/17 21:30 Urine Mucus Rare 02/09/17 10:00 RPR Titer Nonreactive (NONREACTIVE) 02/08/17 06:30 P : Toradol 30mg IM Q6H prn
[2017-02-19] MEDS: KETOROLAC TROMETHAMINE 30 MG/1 ML VIAL IM PRN (20:15)
[2017-02-19] MEDS: traZODone HCL 100 MG TABLET (FP) PO SCH (21:24)
[2017-02-19] MEDS: THIAMINE HCL 100 MG TABLET (FP) PO SCH (21:24)
[2017-02-20] MEDS: CYCLOBENZAPRINE HCL 10 MG TABLET (FP) PO PRN ×3 (00:44→21:30)
[2017-02-20] MEDS: LOPERAMIDE HCL 2 MG CAPSULE PO PRN (02:47)
[2017-02-20] MEDS: hydrOXYzine PAMOATE 50 MG CAPSULE (FP) PO PRN ×3 (03:50→21:30)
[2017-02-20] MEDS: ACETAMINOPHEN 325 MG TABLET (FP) PO PRN ×2 (03:51→13:44)
[2017-02-20] MEDS: GABAPENTIN 400 MG CAPSULE (FP) PO SCH ×3 (06:16→21:31)
[2017-02-20] MEDS: FUROSEMIDE 20 MG TABLET (FP) PO SCH ×2 (06:16→14:03)
[2017-02-20] MEDS: TRIMETHOBENZAMIDE HCL 300 MG CAPSULE PO PRN (09:19)
[2017-02-20] MEDS: METOPROLOL TARTRATE 25 MG TABLET (FP) PO SCH ×2 (10:15→21:31)
[2017-02-20] MEDS: PRENATAL VITAMINS W/ FOLIC ACID TABLET (FP) PO SCH (10:15)
[2017-02-20] MEDS: SERTRALINE HCL 50 MG TABLET (FP) PO SCH (10:15)
[2017-02-20] MEDS: SPIRONOLACTONE 25 MG TABLET (FP) PO SCH ×2 (10:16→16:30)
[2017-02-20] MEDS: LEVONORGESTREL ETHIN ESTRADIOL PO SCH (10:17)
[2017-02-20] MEDS: KETOROLAC TROMETHAMINE 30 MG/1 ML VIAL IM PRN ×2 (11:43→18:18)
[2017-02-20] MEDS ORDERED: PT OWN MED DRAWER 7, Y5N ONE ×2 (11:44→18:13)
[2017-02-20] MEDS: IBUPROFEN 400 MG TABLET (FP) PO PRN (15:18)
[2017-02-20] MEDS ORDERED: DIPHENOXYLATE 2.5/ATROPINE.025 1 COMBO TABLET PO PRN (17:29)
[2017-02-20] MEDS ORDERED: traZODone HCL 50 MG TABLET (FP) ONE (19:43)
[2017-02-20] MEDS: THIAMINE HCL 100 MG TABLET (FP) PO SCH (21:30)
[2017-02-20] MEDS: traZODone HCL 100 MG TABLET (FP) PO SCH (21:31)
[2017-02-21] MEDS: KETOROLAC TROMETHAMINE 30 MG/1 ML VIAL IM PRN ×2 (00:26→09:02)
[2017-02-21] MEDS: ACETAMINOPHEN 325 MG TABLET (FP) PO PRN (04:33)
[2017-02-21] MEDS: GABAPENTIN 400 MG CAPSULE (FP) PO SCH ×3 (06:40→21:34)
[2017-02-21] MEDS: hydrOXYzine PAMOATE 50 MG CAPSULE (FP) PO PRN ×3 (06:40→17:47)
[2017-02-21] MEDS: FUROSEMIDE 20 MG TABLET (FP) PO SCH ×2 (06:41→13:27)
[2017-02-21] MEDS: CYCLOBENZAPRINE HCL 10 MG TABLET (FP) PO PRN ×2 (07:19→17:47)
[2017-02-21] MEDS: METOPROLOL TARTRATE 25 MG TABLET (FP) PO SCH ×2 (09:06→21:34)
[2017-02-21] MEDS: PRENATAL VITAMINS W/ FOLIC ACID TABLET (FP) PO SCH (09:06)
[2017-02-21] MEDS: LEVONORGESTREL ETHIN ESTRADIOL PO SCH (09:07)
[2017-02-21] MEDS: SERTRALINE HCL 50 MG TABLET (FP) PO SCH (09:07)
[2017-02-21] MEDS: SPIRONOLACTONE 25 MG TABLET (FP) PO SCH ×2 (09:07→15:56)
[2017-02-21] MEDS: THIAMINE HCL 100 MG TABLET (FP) PO SCH (21:34)
[2017-02-21] MEDS: diphenhydrAMINE HCL 50 MG CAPSULE PO PRN (21:34)
[2017-02-21] MEDS: traZODone HCL 100 MG TABLET (FP) PO SCH (21:34)
[2017-02-22] MEDS: FUROSEMIDE 20 MG TABLET (FP) PO SCH ×2 (06:03→13:10)
[2017-02-22] MEDS: GABAPENTIN 400 MG CAPSULE (FP) PO SCH ×3 (06:03→21:31)
[2017-02-22] MEDS: CYCLOBENZAPRINE HCL 10 MG TABLET (FP) PO PRN ×2 (06:03→17:57)
[2017-02-22] MEDS: hydrOXYzine PAMOATE 50 MG CAPSULE (FP) PO PRN ×2 (06:03→13:12)
[2017-02-22] MEDS: ACETAMINOPHEN 325 MG TABLET (FP) PO PRN (09:05)
[2017-02-22] MEDS: SPIRONOLACTONE 25 MG TABLET (FP) PO SCH ×2 (09:06→15:28)
[2017-02-22] MEDS: PRENATAL VITAMINS W/ FOLIC ACID TABLET (FP) PO SCH (09:06)
[2017-02-22] MEDS: LEVONORGESTREL ETHIN ESTRADIOL PO SCH (09:07)
[2017-02-22] MEDS: METOPROLOL TARTRATE 25 MG TABLET (FP) PO SCH ×2 (09:07→21:31)
[2017-02-22] MEDS: SERTRALINE HCL 50 MG TABLET (FP) PO SCH (10:23)
[2017-02-22] MEDS: IBUPROFEN 400 MG TABLET (FP) PO PRN (13:12)
[2017-02-22] MEDS: traZODone HCL 100 MG TABLET (FP) PO SCH (21:31)
[2017-02-22] MEDS: THIAMINE HCL 100 MG TABLET (FP) PO SCH (21:31)
[2017-02-22] MEDS ORDERED: PT OWN MED DRAWER 7, Y5N ONE (21:32)
[2017-02-22] MEDS: KETOROLAC TROMETHAMINE 30 MG/1 ML VIAL IM PRN (21:35)
[2017-02-23] MEDS: GABAPENTIN 400 MG CAPSULE (FP) PO SCH ×3 (06:13→21:29)
[2017-02-23] MEDS: hydrOXYzine PAMOATE 50 MG CAPSULE (FP) PO PRN ×2 (06:13→13:11)
[2017-02-23] MEDS: CYCLOBENZAPRINE HCL 10 MG TABLET (FP) PO PRN ×2 (06:14→17:48)
[2017-02-23] MEDS: FUROSEMIDE 20 MG TABLET (FP) PO SCH ×2 (06:14→13:11)
[2017-02-23] MEDS: SERTRALINE HCL 50 MG TABLET (FP) PO SCH (09:41)
[2017-02-23] MEDS: METOPROLOL TARTRATE 25 MG TABLET (FP) PO SCH ×2 (09:42→21:29)
[2017-02-23] MEDS: LEVONORGESTREL ETHIN ESTRADIOL PO SCH (09:42)
[2017-02-23] MEDS: PRENATAL VITAMINS W/ FOLIC ACID TABLET (FP) PO SCH (09:42)
[2017-02-23] MEDS: SPIRONOLACTONE 25 MG TABLET (FP) PO SCH ×2 (09:42→15:19)
[2017-02-23] MEDS: IBUPROFEN 400 MG TABLET (FP) PO PRN (11:16)
[2017-02-23] MEDS ORDERED: PT OWN MED DRAWER 7, Y5N ONE (17:48)
[2017-02-23] MEDS: traZODone HCL 100 MG TABLET (FP) PO SCH (21:29)
[2017-02-23] MEDS: THIAMINE HCL 100 MG TABLET (FP) PO SCH (21:29)
[2017-02-24] MEDS: GABAPENTIN 400 MG CAPSULE (FP) PO SCH ×3 (06:06→21:41)
[2017-02-24] MEDS: FUROSEMIDE 20 MG TABLET (FP) PO SCH ×2 (06:06→13:10)
[2017-02-24] MEDS: hydrOXYzine PAMOATE 50 MG CAPSULE (FP) PO PRN ×2 (06:06→16:25)
[2017-02-24] MEDS: CYCLOBENZAPRINE HCL 10 MG TABLET (FP) PO PRN ×2 (06:06→18:55)
[2017-02-24] MEDS: LEVONORGESTREL ETHIN ESTRADIOL PO SCH (10:01)
[2017-02-24] MEDS: SPIRONOLACTONE 25 MG TABLET (FP) PO SCH ×2 (10:02→15:01)
[2017-02-24] MEDS: PRENATAL VITAMINS W/ FOLIC ACID TABLET (FP) PO SCH (10:02)
[2017-02-24] MEDS: SERTRALINE HCL 50 MG TABLET (FP) PO SCH (10:02)
[2017-02-24] MEDS: METOPROLOL TARTRATE 25 MG TABLET (FP) PO SCH ×2 (10:02→21:41)
[2017-02-24] MEDS: IBUPROFEN 400 MG TABLET (FP) PO PRN (15:02)
[2017-02-24] MEDS: HYDROCORTISONE 1% TOPICAL CREAM 30 GM TUBE TP SCH ×2 (18:53→21:42)
[2017-02-24] MEDS: MAG HYDROX/AL HYDROX/SIMETH 30 ML UNIT-DOSE CUP PO PRN (19:57)
[2017-02-24] MEDS: traZODone HCL 100 MG TABLET (FP) PO SCH (21:41)
[2017-02-24] MEDS: THIAMINE HCL 100 MG TABLET (FP) PO SCH (21:41)
[2017-02-24] MEDS: diphenhydrAMINE HCL 50 MG CAPSULE PO PRN (21:41)
[2017-02-25] MEDS: IBUPROFEN 400 MG TABLET (FP) PO PRN (01:56)
[2017-02-25] MEDS: GABAPENTIN 400 MG CAPSULE (FP) PO SCH ×3 (06:24→21:41)
[2017-02-25] MEDS: FUROSEMIDE 20 MG TABLET (FP) PO SCH ×2 (06:24→15:09)
[2017-02-25] MEDS: CYCLOBENZAPRINE HCL 10 MG TABLET (FP) PO PRN (06:25)
[2017-02-25] MEDS: PRENATAL VITAMINS W/ FOLIC ACID TABLET (FP) PO SCH (09:54)
[2017-02-25] MEDS: METOPROLOL TARTRATE 25 MG TABLET (FP) PO SCH ×2 (09:54→21:40)
[2017-02-25] MEDS: SERTRALINE HCL 50 MG TABLET (FP) PO SCH (09:54)
[2017-02-25] MEDS: SPIRONOLACTONE 25 MG TABLET (FP) PO SCH ×2 (09:54→15:20)
[2017-02-25] MEDS: hydrOXYzine PAMOATE 50 MG CAPSULE (FP) PO PRN (09:54)
[2017-02-25] MEDS: LEVONORGESTREL ETHIN ESTRADIOL PO SCH (09:55)
[2017-02-25] MEDS: HYDROCORTISONE 1% TOPICAL CREAM 30 GM TUBE TP SCH ×4 (09:56→21:42)
[2017-02-25] MEDS: MAG HYDROX/AL HYDROX/SIMETH 30 ML UNIT-DOSE CUP PO PRN ×2 (11:27→18:19)
[2017-02-25] MEDS: traZODone HCL 100 MG TABLET (FP) PO SCH (21:40)
[2017-02-25] MEDS: THIAMINE HCL 100 MG TABLET (FP) PO SCH (21:42)
[2017-02-26] MEDS: CYCLOBENZAPRINE HCL 10 MG TABLET (FP) PO PRN ×2 (06:27→14:55)
[2017-02-26] MEDS: FUROSEMIDE 20 MG TABLET (FP) PO SCH ×2 (06:27→13:43)
[2017-02-26] MEDS: GABAPENTIN 400 MG CAPSULE (FP) PO SCH ×3 (06:27→21:56)
[2017-02-26] MEDS: ACETAMINOPHEN 325 MG TABLET (FP) PO PRN (08:56)
[2017-02-26] MEDS: PRENATAL VITAMINS W/ FOLIC ACID TABLET (FP) PO SCH (09:46)
[2017-02-26] MEDS: METOPROLOL TARTRATE 25 MG TABLET (FP) PO SCH ×2 (09:46→21:56)
[2017-02-26] MEDS: hydrOXYzine PAMOATE 50 MG CAPSULE (FP) PO PRN ×2 (09:46→21:56)
[2017-02-26] MEDS: SPIRONOLACTONE 25 MG TABLET (FP) PO SCH ×2 (09:46→16:30)
[2017-02-26] MEDS: SERTRALINE HCL 50 MG TABLET (FP) PO SCH (09:46)
[2017-02-26] MEDS: IBUPROFEN 400 MG TABLET (FP) PO PRN ×2 (09:46→20:06)
[2017-02-26] MEDS: HYDROCORTISONE 1% TOPICAL CREAM 30 GM TUBE TP SCH ×4 (09:47→21:58)
[2017-02-26] MEDS: LEVONORGESTREL ETHIN ESTRADIOL PO SCH (11:05)
[2017-02-26] MEDS: TRIMETHOBENZAMIDE HCL 300 MG CAPSULE PO PRN (13:43)
[2017-02-26] MEDS: THIAMINE HCL 100 MG TABLET (FP) PO SCH (21:56)
[2017-02-26] MEDS: traZODone HCL 100 MG TABLET (FP) PO SCH (21:56)
[2017-02-27] MEDS: GABAPENTIN 400 MG CAPSULE (FP) PO SCH ×3 (06:17→21:35)
[2017-02-27] MEDS: CYCLOBENZAPRINE HCL 10 MG TABLET (FP) PO PRN ×2 (06:17→15:17)
[2017-02-27] MEDS: FUROSEMIDE 20 MG TABLET (FP) PO SCH ×2 (06:17→14:08)
[2017-02-27] MEDS: hydrOXYzine PAMOATE 50 MG CAPSULE (FP) PO PRN (06:17)
[2017-02-27] MEDS: SPIRONOLACTONE 25 MG TABLET (FP) PO SCH (10:06)
[2017-02-27] MEDS: HYDROCORTISONE 1% TOPICAL CREAM 30 GM TUBE TP SCH ×4 (10:06→21:36)
[2017-02-27] MEDS: PRENATAL VITAMINS W/ FOLIC ACID TABLET (FP) PO SCH (10:06)
[2017-02-27] MEDS: LEVONORGESTREL ETHIN ESTRADIOL PO SCH (10:06)
[2017-02-27] MEDS: SERTRALINE HCL 50 MG TABLET (FP) PO SCH (10:06)
[2017-02-27] MEDS: METOPROLOL TARTRATE 25 MG TABLET (FP) PO SCH ×2 (10:06→21:35)
[2017-02-27] MEDS: IBUPROFEN 400 MG TABLET (FP) PO PRN ×2 (10:09→19:01)
[2017-02-27] MEDS ORDERED: PT OWN MED DRAWER 7, Y5N ONE (11:45)
--- NOTE | 2017-02-27 15:02 | PN ---
[facility] Progress Note Note: Edema of LE resolved we'll D/C lasix & aldactone.
[2017-02-27] MEDS: MAG HYDROX/AL HYDROX/SIMETH 30 ML UNIT-DOSE CUP PO PRN (19:01)
[2017-02-27] MEDS: traZODone HCL 100 MG TABLET (FP) PO SCH (21:35)
[2017-02-27] MEDS: diphenhydrAMINE HCL 50 MG CAPSULE PO PRN (21:35)
[2017-02-27] MEDS: THIAMINE HCL 100 MG TABLET (FP) PO SCH (21:35)
[2017-02-28] MEDS: hydrOXYzine PAMOATE 50 MG CAPSULE (FP) PO PRN ×3 (06:10→18:24)
[2017-02-28] MEDS: CYCLOBENZAPRINE HCL 10 MG TABLET (FP) PO PRN ×2 (06:10→18:24)
[2017-02-28] MEDS: GABAPENTIN 400 MG CAPSULE (FP) PO SCH ×3 (06:10→21:03)
[2017-02-28] MEDS: IBUPROFEN 400 MG TABLET (FP) PO PRN (07:10)
[2017-02-28] MEDS: PRENATAL VITAMINS W/ FOLIC ACID TABLET (FP) PO SCH (10:06)
[2017-02-28] MEDS: LEVONORGESTREL ETHIN ESTRADIOL PO SCH (10:06)
[2017-02-28] MEDS: METOPROLOL TARTRATE 25 MG TABLET (FP) PO SCH ×2 (10:06→21:03)
[2017-02-28] MEDS: SERTRALINE HCL 50 MG TABLET (FP) PO SCH (10:06)
[2017-02-28] MEDS: HYDROCORTISONE 1% TOPICAL CREAM 30 GM TUBE TP SCH ×4 (10:06→21:04)
[2017-02-28] MEDS ORDERED: PT OWN MED DRAWER 7, Y5N ONE ×2 (10:32→14:07)
[2017-02-28] MEDS: KETOROLAC TROMETHAMINE 30 MG/1 ML VIAL IM PRN ×2 (14:11→22:56)
[2017-02-28] MEDS: traZODone HCL 100 MG TABLET (FP) PO SCH (21:03)
[2017-02-28] MEDS: THIAMINE HCL 100 MG TABLET (FP) PO SCH (21:03)
[2017-03-01] MEDS: CYCLOBENZAPRINE HCL 10 MG TABLET (FP) PO PRN (07:28)
[2017-03-01] MEDS: GABAPENTIN 400 MG CAPSULE (FP) PO SCH ×3 (07:29→21:26)
[2017-03-01] MEDS: hydrOXYzine PAMOATE 50 MG CAPSULE (FP) PO PRN (07:29)
[2017-03-01] MEDS: METOPROLOL TARTRATE 25 MG TABLET (FP) PO SCH ×2 (09:49→21:26)
[2017-03-01] MEDS: PRENATAL VITAMINS W/ FOLIC ACID TABLET (FP) PO SCH (09:49)
[2017-03-01] MEDS: SERTRALINE HCL 50 MG TABLET (FP) PO SCH (09:50)
[2017-03-01] MEDS: LEVONORGESTREL ETHIN ESTRADIOL PO SCH (09:50)
[2017-03-01] MEDS: HYDROCORTISONE 1% TOPICAL CREAM 30 GM TUBE TP SCH ×4 (09:51→21:26)
[2017-03-01] MEDS ORDERED: PT OWN MED DRAWER 7, Y5N ONE ×4 (12:28→22:18)
[2017-03-01] MEDS: KETOROLAC TROMETHAMINE 30 MG/1 ML VIAL IM PRN (13:10)
[2017-03-01] MEDS: MAG HYDROX/AL HYDROX/SIMETH 30 ML UNIT-DOSE CUP PO PRN (17:03)
[2017-03-01] MEDS: THIAMINE HCL 100 MG TABLET (FP) PO SCH (21:26)
[2017-03-01] MEDS: traZODone HCL 100 MG TABLET (FP) PO SCH (21:26)
[2017-03-01] MEDS: P-EPHED 60MG/TRIPROLIDI 2.5MG TABLET PO PRN (22:06)
[2017-03-02] MEDS: ACETAMINOPHEN 325 MG TABLET (FP) PO PRN (00:38)
[2017-03-02] MEDS: KETOROLAC TROMETHAMINE 30 MG/1 ML VIAL IM PRN ×2 (04:43→18:02)
[2017-03-02] MEDS: CYCLOBENZAPRINE HCL 10 MG TABLET (FP) PO PRN ×2 (06:26→22:43)
[2017-03-02] MEDS: GABAPENTIN 400 MG CAPSULE (FP) PO SCH ×3 (06:26→21:27)
[2017-03-02] MEDS: LIDOCAINE VISCOUS 2% ORAL/TOP 20 ML UNIT-DOSE CUP MM PRN ×2 (06:28→23:11)
[2017-03-02] MEDS: IBUPROFEN 400 MG TABLET (FP) PO PRN (08:52)
[2017-03-02] MEDS: HYDROCORTISONE 1% TOPICAL CREAM 30 GM TUBE TP SCH ×4 (10:03→21:46)
[2017-03-02] MEDS: SERTRALINE HCL 50 MG TABLET (FP) PO SCH (10:03)
[2017-03-02] MEDS: LEVONORGESTREL ETHIN ESTRADIOL PO SCH (10:03)
[2017-03-02] MEDS: METOPROLOL TARTRATE 25 MG TABLET (FP) PO SCH ×2 (10:03→21:27)
[2017-03-02] MEDS: PRENATAL VITAMINS W/ FOLIC ACID TABLET (FP) PO SCH (10:03)
[2017-03-02] MEDS: hydrOXYzine PAMOATE 50 MG CAPSULE (FP) PO PRN (10:05)
[2017-03-02] MEDS: P-EPHED 60MG/TRIPROLIDI 2.5MG TABLET PO PRN (10:41)
[2017-03-02] MEDS: MAG HYDROX/AL HYDROX/SIMETH 30 ML UNIT-DOSE CUP PO PRN ×2 (11:33→18:01)
[2017-03-02] MEDS ORDERED: PT OWN MED DRAWER 7, Y5N ONE ×2 (13:08→17:45)
[2017-03-02] MEDS: THIAMINE HCL 100 MG TABLET (FP) PO SCH (21:27)
[2017-03-02] MEDS: traZODone HCL 100 MG TABLET (FP) PO SCH (21:27)
[2017-03-03] MEDS: GABAPENTIN 400 MG CAPSULE (FP) PO SCH ×3 (06:52→21:38)
[2017-03-03] MEDS: hydrOXYzine PAMOATE 50 MG CAPSULE (FP) PO PRN ×3 (06:52→21:38)
[2017-03-03] MEDS: LIDOCAINE VISCOUS 2% ORAL/TOP 20 ML UNIT-DOSE CUP MM PRN ×2 (06:53→18:21)
[2017-03-03] MEDS: PRENATAL VITAMINS W/ FOLIC ACID TABLET (FP) PO SCH (09:25)
[2017-03-03] MEDS: METOPROLOL TARTRATE 25 MG TABLET (FP) PO SCH ×2 (09:25→21:38)
[2017-03-03] MEDS: LEVONORGESTREL ETHIN ESTRADIOL PO SCH (09:25)
[2017-03-03] MEDS: HYDROCORTISONE 1% TOPICAL CREAM 30 GM TUBE TP SCH ×4 (09:26→21:40)
[2017-03-03] MEDS: SERTRALINE HCL 50 MG TABLET (FP) PO SCH (09:26)
[2017-03-03] MEDS ORDERED: PT OWN MED DRAWER 7, Y5N ONE ×2 (09:27→18:19)
[2017-03-03] MEDS: KETOROLAC TROMETHAMINE 30 MG/1 ML VIAL IM PRN ×2 (09:27→18:21)
[2017-03-03] MEDS: CYCLOBENZAPRINE HCL 10 MG TABLET (FP) PO PRN (13:24)
[2017-03-03] MEDS: IBUPROFEN 400 MG TABLET (FP) PO PRN (21:38)
[2017-03-03] MEDS: traZODone HCL 100 MG TABLET (FP) PO SCH (21:38)
[2017-03-03] MEDS: THIAMINE HCL 100 MG TABLET (FP) PO SCH (21:40)
[2017-03-04] MEDS: CYCLOBENZAPRINE HCL 10 MG TABLET (FP) PO PRN (06:40)
[2017-03-04] MEDS: hydrOXYzine PAMOATE 50 MG CAPSULE (FP) PO PRN ×3 (06:40→19:55)
[2017-03-04] MEDS: GABAPENTIN 400 MG CAPSULE (FP) PO SCH ×3 (06:40→21:23)
[2017-03-04] MEDS ORDERED: PT OWN MED DRAWER 7, Y5N ONE (08:14)
[2017-03-04] MEDS: LIDOCAINE VISCOUS 2% ORAL/TOP 20 ML UNIT-DOSE CUP MM PRN ×2 (08:58→18:14)
[2017-03-04] MEDS: PRENATAL VITAMINS W/ FOLIC ACID TABLET (FP) PO SCH (09:43)
[2017-03-04] MEDS: LEVONORGESTREL ETHIN ESTRADIOL PO SCH (09:43)
[2017-03-04] MEDS: HYDROCORTISONE 1% TOPICAL CREAM 30 GM TUBE TP SCH ×4 (09:44→21:22)
[2017-03-04] MEDS: METOPROLOL TARTRATE 25 MG TABLET (FP) PO SCH ×2 (09:44→21:22)
[2017-03-04] MEDS: SERTRALINE HCL 50 MG TABLET (FP) PO SCH (09:44)
[2017-03-04] MEDS: IBUPROFEN 400 MG TABLET (FP) PO PRN ×2 (09:45→18:57)
[2017-03-04] MEDS: KETOROLAC TROMETHAMINE 30 MG/1 ML VIAL IM PRN (14:00)
[2017-03-04] MEDS: MAG HYDROX/AL HYDROX/SIMETH 30 ML UNIT-DOSE CUP PO PRN (19:55)
[2017-03-04] MEDS: traZODone HCL 100 MG TABLET (FP) PO SCH (21:22)
[2017-03-04] MEDS: THIAMINE HCL 100 MG TABLET (FP) PO SCH (21:23)
[2017-03-05] MEDS: IBUPROFEN 400 MG TABLET (FP) PO PRN (06:33)
[2017-03-05] MEDS: GABAPENTIN 400 MG CAPSULE (FP) PO SCH ×3 (06:35→21:13)
[2017-03-05] MEDS: LIDOCAINE VISCOUS 2% ORAL/TOP 20 ML UNIT-DOSE CUP MM PRN ×2 (06:35→18:51)
[2017-03-05] MEDS: HYDROCORTISONE 1% TOPICAL CREAM 30 GM TUBE TP SCH ×4 (09:36→21:14)
[2017-03-05] MEDS: PRENATAL VITAMINS W/ FOLIC ACID TABLET (FP) PO SCH (09:38)
[2017-03-05] MEDS: LEVONORGESTREL ETHIN ESTRADIOL PO SCH (09:38)
[2017-03-05] MEDS: SERTRALINE HCL 50 MG TABLET (FP) PO SCH (09:38)
[2017-03-05] MEDS: METOPROLOL TARTRATE 25 MG TABLET (FP) PO SCH ×2 (09:38→21:13)
[2017-03-05] MEDS: hydrOXYzine PAMOATE 50 MG CAPSULE (FP) PO PRN ×2 (09:39→18:51)
[2017-03-05] MEDS ORDERED: PT OWN MED DRAWER 7, Y5N ONE (13:06)
[2017-03-05] MEDS: KETOROLAC TROMETHAMINE 30 MG/1 ML VIAL IM PRN (13:15)
[2017-03-05] MEDS: CYCLOBENZAPRINE HCL 10 MG TABLET (FP) PO PRN (18:51)
[2017-03-05] MEDS: THIAMINE HCL 100 MG TABLET (FP) PO SCH (21:13)
[2017-03-05] MEDS: traZODone HCL 100 MG TABLET (FP) PO SCH (21:13)
[2017-03-06] MEDS: hydrOXYzine PAMOATE 50 MG CAPSULE (FP) PO PRN ×2 (06:18→13:46)
[2017-03-06] MEDS: GABAPENTIN 400 MG CAPSULE (FP) PO SCH ×3 (06:18→21:26)
[2017-03-06] MEDS: METOPROLOL TARTRATE 25 MG TABLET (FP) PO SCH ×2 (09:46→21:26)
[2017-03-06] MEDS: SERTRALINE HCL 50 MG TABLET (FP) PO SCH (09:46)
[2017-03-06] MEDS: PRENATAL VITAMINS W/ FOLIC ACID TABLET (FP) PO SCH (09:46)
[2017-03-06] MEDS: HYDROCORTISONE 1% TOPICAL CREAM 30 GM TUBE TP SCH ×4 (09:47→21:27)
[2017-03-06] MEDS: LEVONORGESTREL ETHIN ESTRADIOL PO SCH (09:47)
[2017-03-06] MEDS: IBUPROFEN 400 MG TABLET (FP) PO PRN (09:50)
[2017-03-06] MEDS: LIDOCAINE VISCOUS 2% ORAL/TOP 20 ML UNIT-DOSE CUP MM PRN (09:51)
[2017-03-06] MEDS ORDERED: KETOROLAC TROMETHAMINE 30 MG/1 ML VIAL IM PRN (12:06)
[2017-03-06] MEDS: MAG HYDROX/AL HYDROX/SIMETH 30 ML UNIT-DOSE CUP PO SCH ×2 (15:36→18:30)
[2017-03-06] MEDS: PANTOPRAZOLE 40 MG TABLET (FP) PO SCH (15:36)
[2017-03-06] MEDS: NAPROXEN 500 MG TABLET (FP) PO SCH ×2 (15:36→21:26)
[2017-03-06] MEDS: CYCLOBENZAPRINE HCL 10 MG TABLET (FP) PO PRN (17:12)
[2017-03-06] MEDS ORDERED: PT OWN MED DRAWER 7, Y5N ONE (19:32)
[2017-03-06] MEDS: traZODone HCL 100 MG TABLET (FP) PO SCH (21:26)
[2017-03-06] MEDS: THIAMINE HCL 100 MG TABLET (FP) PO SCH (21:26)
[2017-03-06] MEDS: diphenhydrAMINE HCL 50 MG CAPSULE PO PRN (21:27)
[2017-03-07] MEDS: MAG HYDROX/AL HYDROX/SIMETH 30 ML UNIT-DOSE CUP PO SCH ×4 (02:20→18:25)
[2017-03-07] MEDS: GABAPENTIN 400 MG CAPSULE (FP) PO SCH (06:38)
[2017-03-07] MEDS: PRENATAL VITAMINS W/ FOLIC ACID TABLET (FP) PO SCH (10:20)
[2017-03-07] MEDS: NAPROXEN 500 MG TABLET (FP) PO SCH ×2 (10:20→21:44)
[2017-03-07] MEDS: PANTOPRAZOLE 40 MG TABLET (FP) PO SCH (10:20)
[2017-03-07] MEDS: SERTRALINE HCL 50 MG TABLET (FP) PO SCH (10:20)
[2017-03-07] MEDS: METOPROLOL TARTRATE 25 MG TABLET (FP) PO SCH ×2 (10:20→21:43)
[2017-03-07] MEDS: LEVONORGESTREL ETHIN ESTRADIOL PO SCH (10:21)
[2017-03-07] MEDS: HYDROCORTISONE 1% TOPICAL CREAM 30 GM TUBE TP SCH ×4 (10:21→21:45)
[2017-03-07] MEDS: GABAPENTIN 300 MG CAPSULE (FP) PO SCH ×2 (13:27→21:43)
[2017-03-07] MEDS ORDERED: PT OWN MED DRAWER 7, Y5N ONE (15:41)
[2017-03-07] MEDS: traZODone HCL 100 MG TABLET (FP) PO SCH (21:43)
[2017-03-07] MEDS: THIAMINE HCL 100 MG TABLET (FP) PO SCH (21:43)
[2017-03-07] MEDS: diphenhydrAMINE HCL 50 MG CAPSULE PO PRN (21:44)
[2017-03-07] MEDS: CYCLOBENZAPRINE HCL 10 MG TABLET (FP) PO PRN (21:45)
[2017-03-08] MEDS: MAG HYDROX/AL HYDROX/SIMETH 30 ML UNIT-DOSE CUP PO SCH (00:17)
[2017-03-08] MEDS ORDERED: MAG HYDROX/AL HYDROX/SIMETH 30 ML UNIT-DOSE CUP PO PRN (00:25)
[2017-03-08] MEDS: GABAPENTIN 300 MG CAPSULE (FP) PO SCH ×3 (06:34→21:37)
[2017-03-08] MEDS: hydrOXYzine PAMOATE 50 MG CAPSULE (FP) PO PRN ×2 (06:35→21:37)
[2017-03-08] MEDS: PRENATAL VITAMINS W/ FOLIC ACID TABLET (FP) PO SCH (10:15)
[2017-03-08] MEDS: PANTOPRAZOLE 40 MG TABLET (FP) PO SCH (10:15)
[2017-03-08] MEDS: SERTRALINE HCL 50 MG TABLET (FP) PO SCH (10:15)
[2017-03-08] MEDS: HYDROCORTISONE 1% TOPICAL CREAM 30 GM TUBE TP SCH ×4 (10:15→21:37)
[2017-03-08] MEDS: NAPROXEN 500 MG TABLET (FP) PO SCH ×2 (10:16→21:37)
[2017-03-08] MEDS: LEVONORGESTREL ETHIN ESTRADIOL PO SCH (10:16)
[2017-03-08] MEDS: METOPROLOL TARTRATE 25 MG TABLET (FP) PO SCH ×2 (10:16→21:37)
[2017-03-08] MEDS: CYCLOBENZAPRINE HCL 10 MG TABLET (FP) PO PRN (15:51)
[2017-03-08] MEDS: THIAMINE HCL 100 MG TABLET (FP) PO SCH (21:36)
[2017-03-08] MEDS: traZODone HCL 100 MG TABLET (FP) PO SCH (21:37)
[2017-03-08 23:16] LABS: URINE APPEARANCE CLOUDY; URINE BILIRUBIN NEGATIVE (NEGATIVE); URINE BLOOD NEGATIVE (NEGATIVE); URINE COLOR YELLOW; URINE GLUCOSE (UA) NEGATIVE (NEGATIVE); URINE KETONE NEGATIVE (NEGATIVE); URINE LEUK ESTERASE 3+ (NEGATIVE); URINE NITRITE NEGATIVE (NEGATIVE); URINE PROTEIN NEGATIVE (NEGATIVE); URINE UROBILINOGEN NEGATIVE mg/dL (0.2-1.0)
[2017-03-08 23:20] LABS: URINE BACTERIA RARE /hpf (NONE SEEN); URINE HYALINE CAST 3 /lpf; URINE MUCUS FEW; URINE RBC 9 /hpf (0-3); URINE WBC 24 /hpf (3-5)
[2017-03-09] MEDS: CYCLOBENZAPRINE HCL 10 MG TABLET (FP) PO PRN ×2 (00:22→15:13)
--- NOTE | 2017-03-09 00:49 | PN ---
[facility] Progress Note Note: patient did not want to be on naprosyn,would like to get motrin,d/c naprosyn, motrin 800 mgs po tid prn for pain
[2017-03-09] MEDS: IBUPROFEN 400 MG TABLET (FP) PO PRN ×2 (00:59→17:47)
[2017-03-09] MEDS: GABAPENTIN 300 MG CAPSULE (FP) PO SCH ×3 (06:24→21:25)
[2017-03-09] MEDS: hydrOXYzine PAMOATE 50 MG CAPSULE (FP) PO PRN (06:24)
[2017-03-09] MEDS: HYDROCORTISONE 1% TOPICAL CREAM 30 GM TUBE TP SCH ×4 (09:51→21:26)
[2017-03-09] MEDS: SERTRALINE HCL 50 MG TABLET (FP) PO SCH (09:52)
[2017-03-09] MEDS: PANTOPRAZOLE 40 MG TABLET (FP) PO SCH (09:52)
[2017-03-09] MEDS: LEVONORGESTREL ETHIN ESTRADIOL PO SCH (09:52)
[2017-03-09] MEDS: PRENATAL VITAMINS W/ FOLIC ACID TABLET (FP) PO SCH (09:52)
[2017-03-09] MEDS: METOPROLOL TARTRATE 25 MG TABLET (FP) PO SCH ×2 (09:52→21:25)
[2017-03-09] MEDS: PHENAZOPYRIDINE HCL 100 MG TABLET (FP) PO SCH ×2 (13:14→22:30)
[2017-03-09] MEDS: SULFAMETHOXAZOLE/TRIMETHOPRIM 800MG/160MG D.S. TABLET PO SCH ×2 (13:14→21:25)
[2017-03-09] MEDS: diphenhydrAMINE HCL 50 MG CAPSULE PO PRN (21:25)
[2017-03-09] MEDS: traZODone HCL 100 MG TABLET (FP) PO SCH (21:25)
[2017-03-09] MEDS ORDERED: PT OWN MED DRAWER 7, Y5N ONE (21:55)
[2017-03-09] MEDS: THIAMINE HCL 100 MG TABLET (FP) PO SCH (22:30)
[2017-03-10] MEDS: GABAPENTIN 300 MG CAPSULE (FP) PO SCH (06:26)
[2017-03-10] MEDS: hydrOXYzine PAMOATE 50 MG CAPSULE (FP) PO PRN (06:28)
[2017-03-10] MEDS: CYCLOBENZAPRINE HCL 10 MG TABLET (FP) PO PRN (06:28)
[2017-03-10 07:04] VITALS: TEMP 98.8
[2017-03-10 09:26] VITALS: BP 137/86; PULSE 102
[2017-03-10] MEDS: SULFAMETHOXAZOLE/TRIMETHOPRIM 800MG/160MG D.S. TABLET PO SCH (09:31)
[2017-03-10] MEDS: PRENATAL VITAMINS W/ FOLIC ACID TABLET (FP) PO SCH (09:31)
[2017-03-10] MEDS: METOPROLOL TARTRATE 25 MG TABLET (FP) PO SCH (09:31)
[2017-03-10] MEDS: PANTOPRAZOLE 40 MG TABLET (FP) PO SCH (09:31)
[2017-03-10] MEDS: LEVONORGESTREL ETHIN ESTRADIOL PO SCH (09:31)
[2017-03-10] MEDS: SERTRALINE HCL 50 MG TABLET (FP) PO SCH (09:31)
[2017-03-10] MEDS: PHENAZOPYRIDINE HCL 100 MG TABLET (FP) PO SCH (09:32)
[2017-03-10] MEDS: HYDROCORTISONE 1% TOPICAL CREAM 30 GM TUBE TP SCH (09:32)
--- NOTE | 2017-03-10 09:33 | PN ---
Psychiatric Progress Note Vital Signs: Vital Signs Period Temp Pulse Resp BP Sys/Smart Pulse Ox Last 24 Hr 98.1 F-98.8 F 98-103 16-18 127-137/77-86 Date of Session: 03/10/17 Chief Complaint:: Discharge visit HPI: Patient addressed Opioid dependence comorbid with Substance induced mood disorder. ROS: Significant for Endometriosis. Current Medications: Active Medications Generic Name Dose Route Start Last Admin Trade Name Freq PRN Reason Stop Dose Admin Acetaminophen 650 mg 02/06/17 19:35 03/02/17 00:38 Tylenol - PO 650 mg Q4H PRN Administration FEVER OR PAIN Al Hydroxide/Mg Hydroxide 30 ml 03/08/17 00:25 Mylanta Oral Suspension - PO Q6H PRN Cyclobenzaprine HCl 10 mg 02/06/17 19:38 03/10/17 06:28 Flexeril - PO 10 mg TID PRN Administration MUSCLE SPASMS Diphenhydramine HCl 50 mg 02/06/17 19:35 03/09/17 21:25 Benadryl - PO 50 mg HSMR1 PRN Administration INSOMNIA Eucalyptus/Menthol/Phenol/Sorbitol 1 each 02/06/17 19:35 02/12/17 09:34 Cepastat Lozenge - MM 1 each Q4H PRN Administration SORE THROAT Gabapentin 600 mg 03/07/17 14:00 03/10/17 06:26 Neurontin - PO 600 mg TID EVARISTO Administration Guaifenesin 10 ml 02/06/17 19:35 Robitussin Dm - PO Q6H PRN COUGH Hydrocortisone 1 applic 02/24/17 18:00 03/09/17 21:26 Hytone 1% Cream - TP Not Given QID [facility] Hydroxyzine Pamoate 50 mg 02/17/17 14:37 03/10/17 06:28 Vistaril - PO 50 mg Q4H PRN Administration ANXIETY Ibuprofen 800 mg 03/09/17 00:46 03/09/17 17:47 Motrin - PO 800 mg Q8H PRN Administration PAIN Lidocaine HCl 20 ml 02/13/17 15:16 03/06/17 09:51 Xylocaine 2% Viscous Oral - MM 20 ml Q4HPO PRN Administration ORAL PAIN/MOUTH SORES Magnesium Citrate 300 ml 02/06/17 19:35 Citroma - PO Q48H PRN CONSTIPATION Magnesium Hydroxide 30 ml 02/06/17 19:35 Milk Of Magnesia - PO DAILY PRN CONSTIPATION Metoprolol Tartrate 25 mg 02/17/17 22:00 03/09/17 21:25 Lopressor - PO 25 mg BID EVARISTO Administration Non-Formulary Medication 1 each 02/09/17 10:00 03/09/17 09:52 Levonorgestrel-Ethin Estradiol [Levonor-Eth Estrad 0.15-0.03] PO 1 each DAILY EVARISTO Administration Pantoprazole Sodium 40 mg 03/06/17 15:15 03/09/17 09:52 Protonix - PO 40 mg DAILY EVARISTO Administration Phenazopyridine HCl 200 mg 03/09/17 12:30 03/09/17 22:30 Pyridium - PO 03/11/17 12:29 200 mg BID EVARISTO Administration Multivit/Folic Acid/Iron 1 tab 02/07/17 10:00 03/09/17 09:52 Vitamins (Sjr) - PO 1 tab DAILY EVARISTO Administration Pseudoephedrine/Triprolidine 1 combo 02/06/17 19:35 03/02/17 10:41 Actifed - PO 1 combo TID PRN Administration NASAL CONGESTION Sertraline HCl 100 mg 02/18/17 10:00 03/09/17 09:52 Zoloft - PO 100 mg DAILY EVARISTO Administration Thiamine HCl 100 mg 02/06/17 22:00 03/09/17 22:30 Vitamin B1 - PO 100 mg HS EVARISTO Administration Trazodone HCl 100 mg 02/15/17 22:00 03/09/17 21:25 Desyrel - PO 100 mg HS EVARISTO Administration Trimethobenzamide HCl 300 mg 02/07/17 14:27 02/26/17 13:43 Tigan - PO 300 mg QID PRN Administration NAUSEA AND/OR VOMITING Trimethobenzamide HCl 200 mg 02/08/17 14:30 Tigan Injection - IM Q8H PRN NAUSEA Trimethoprim/Sulfamethoxazole 1 each 03/09/17 12:30 03/09/17 21:25 Bactrim Ds - PO 1 each BID EVARISTO Administration Current Side Effect: No Lab tests ordered: No Lab tests reviewed: Yes Provider note:: Chart was revuewed,patient was evaluated,treatment plan and curent medications has been discussed with the patient .properties of Zoloft and other SSRI's has been discussed as well as mood stabilizers.Neurontin 600 mg po tid,Zoloft 50 mg po daily will be adjusted to 100 mg po daily.Continue Trazodone 100 mg po hs. Psychoeducation,supportive therapy provided. Total face to face time:: 30 Mental Status Exam - Mental Status Exam Alert and Oriented to: Time, Place, Person Cognitive Function: Grossly Intact Patient Appearance: Well Groomed Mood: Anxious Affect: Mood Congruent, Labile Patient Behavior: Cooperative Speech Pattern: Clear Voice Loudness: Normal Thought Process: Goal Oriented Thought Disorder: Not Present Hallucinations: Denies Suicidal Ideation: Denies Homicidal Ideation: Denies Insight/Judgement: Fair Sleep: Fair Appetite: Good Muscle strength/Tone: Normal Gait/Station: Normal
== END 2017-03-10 09:44 | disposition home or self-care (01) | DRG 895 ==
LOC: YASAS 15:53 → Y6N 19:00 → Y3E 02-11 12:41
PROVIDERS: ADMIT Psychiatry & Neurology Psychiatry; ATTEND Internal Medicine
PROC: HZ42ZZZ Group Counseling for Substance Abuse Treatment, Cognitive-Behavioral (ICD-10-PCS; principal; 2017-03-10)
PROC: HZ2ZZZZ Detoxification Services for Substance Abuse Treatment (ICD-10-PCS; 2017-03-10)
DX: F11.20 Opioid dependence, uncomplicated (principal); F19.24 Other psychoactive substance dependence with psychoactive substance-induced mood disorder; F41.8 Other specified anxiety disorders; G47.00 Insomnia, unspecified; B18.2 Chronic viral hepatitis C; N80.9 Endometriosis, unspecified; K21.9 Gastro-esophageal reflux disease without esophagitis; E53.8 Deficiency of other specified B group vitamins; Z91.5 Personal history of self-harm
CPT/HCPCS: 36415; 74000-TC; 80053; 81003; 81015; 85027; 86593; 87086; 93005; 93010